=== PATIENT | female | born 1930 | race Asian ===

== ENCOUNTER → 2017-01-01 | Outpatient (CLI) | payer OTHER, MEDICAID ==
[~2017-01-01] MED LIST: CLON0.1T13 PO; DOCU250C91 PO; ENAL5TAB PO; LABE200T PO
== END | disposition home or self-care (01) ==
LOC: RADMN 16:12
PROVIDERS: ATTEND Internal Medicine
DX: I51.7 Cardiomegaly (principal); I70.0 Atherosclerosis of aorta; R06.00 Dyspnea, unspecified
CPT/HCPCS: 71020